=== PATIENT | male | born 1955 | race Caucasian/White ===

== ENCOUNTER 2018-08-27 22:03 | Emergency (ER) | payer OTHER ==
[2018-08-27 22:25] VITALS: RESP 18
--- NOTE | 2018-08-27 22:35 | ED PDOC ---
Arrival/HPI - General Chief Complaint: Syncope Time Seen by Provider: 08/27/18 22:05 Historian: Patient, Family - History of Present Illness Narrative History of Present Illness (Text): 08/27/18 22:32 63 year old male with pmhx of hypothyroidism and hypertension presents to the ED s/p witnessed syncopal episode at [facility]. Patient states he felt weak and diaphoretic before the syncopal episode, otherwise denies any other associated symptoms before the episode. Patient reports he only had one meal today and reports he experienced a syncopal episode in the past due to not eating enough. Patient denies any fever, chills, chest pain, shortness of breath, nausea, vomiting, diarrhea, urinary symptoms, back pain, neck pain, headache, dizziness, or any other complaints. Time/Duration: Prior to Arrival Symptom Onset: Sudden Symptom Course: Improving Activities at Onset: Light Context: Other ([facility]) Past Medical History - Provider Review Nursing Documentation Reviewed: Yes - Infectious Disease Hx of Infectious Diseases: None - Cardiac Hx Hypertension: Yes - Endocrine/Metabolic Hx Hypothyroidism: Yes - Psychiatric Hx Substance Use: No - Surgical History Other/Comment: stomach surgery 2012. Pt states "stomach shifted upwards". - Anesthesia Hx Anesthesia: No Family/Social History - Physician Review Nursing Documentation Reviewed: Yes Family/Social History: No Known Family HX Smoking Status: Never Smoked Hx Alcohol Use: No Hx Substance Use: No Allergies/Home Meds Allergies/Adverse Reactions: Allergies No Known Allergies Allergy (Verified 08/27/18 22:22) Home Medications: Home Meds Medication Instructions Recorded Confirmed Levothyroxine [Synthroid] 25 mg PO DAILY 08/27/18 08/27/18 amLODIPine [Norvasc] 10 mg PO DAILY 08/27/18 08/27/18 Review of Systems - Physician Review All systems were reviewed & negative as marked: Yes - Review of Systems Constitutional: absent: Fevers Respiratory: absent: SOB Cardiovascular: Syncope. absent: Chest Pain Gastrointestinal: absent: Diarrhea, Nausea, Vomiting Genitourinary Male: absent: Dysuria, Frequency, Hematuria Musculoskeletal: absent: Back Pain, Neck Pain Neurological: Other (weakness). absent: Headache, Dizziness Endocrine: Diaphoresis Physical Exam - Physical Exam Narrative Physical Exam (Text): Gen: VS reviewed, alert, well developed, well nourished, nontoxic, mild distress. ENT: normal pharynx. Eye: EOMI, PERRL. Neck: no JVD, supple, no adenopathy. CV: regular rate, regular rhythm, no rubs, no murmur, no gallops, S1, S2, pulses equal and strong. Pulm: no distress, clear to auscultation, no wheeze, no rhonchi, breath sounds equal, no rales. Abd: soft, nontender, no guarding, no rebound, no rigidity, normal bowel sounds. Ext: no edema. Skin: good color, no rash, no cyanosis. Psych: responds appropriately to questions, normal affect. Neuro: oriented x 3, CN2-12 intact grossly, motor intact, sensation intact. Vital Signs Reviewed: Yes Vital Signs Temp Pulse Resp BP Pulse Ox 08/27/18 22:25 98.4 F 78 18 123/74 100 Temperature: Afebrile Blood Pressure: Normal Pulse: Regular Respiratory Rate: Normal Finger Stick Blood Glucose: 250 Medical Decision Making ED Course and Treatment: 08/27/18 22:34 Impression: 63 year old male presents s/p syncopal episode. Patient reports feeling weak and diaphoretic before the episode. Plan: -- Labs -- Finger stick -- Chest X-ray -- Reassess and disposition Prior Visits: Notes and results from previous visits were reviewed. Progress Notes: 08/28/18 00:15 patient seen for syncope, no acute symptoms prior to event such as headache, chest pain, abdominal pain or back pain. patient remained stable throughout ED course. patient encouraged to have close follow up with his pcp. patient reports onset of nasal congeston/irritation with sore throat, on inspection of the post pharynx there is no tonsillar swelling, no exudates, no abnormal redness. symptoms consistent with viral uri, supportive care. - Lab Interpretations I have reviewed the lab results: Yes - RAD Interpretation Narrative RAD Interpretations (Text): 08/28/18 00:05 cxr my read: no focal infiltrate, no ptx, no wide mediastinum Continuous [employer] Supervisor: ED Physician - EKG Interpretation EKG Interpretation (Text): 08/27/18 22:55 2220: nsr at 73 bpm, nml qrs, nml axis, no acute sttw abn Interpreted by ED Physician: Yes - Scribe Statement The provider has reviewed the documentation as recorded by the Scribe Marcela Schroeder Provider Cameron Attestation: All medical record entries made by the Cameron were at my direction and personally dictated by me. I have reviewed the chart and agree that the record accurately reflects my personal performance of the history, physical exam, medical decision making, and the department course for this patient. I have also personally directed, reviewed, and agree with the discharge instructions and disposition. Disposition/Present on Arrival - Present on Arrival Any Indicators Present on Arrival: No History of DVT/PE: No History of Uncontrolled Diabetes: No Urinary Catheter: No History of Decub. Ulcer: No History Surgical Site Infection Following: None - Disposition Have Diagnosis and Disposition been Completed?: Yes Diagnosis: Syncope, Viral pharyngitis Disposition: HOME/ ROUTINE Disposition Time: 00:17 Patient Plan: Discharge Condition: STABLE Discharge Instructions (ExitCare): Syncope (ED), Viral Pharyngitis, Syncope (Fainting) Additional Instructions: Stay well hydrated (water). Return for any new or worsening symptoms. You should discuss with your doctor about referral to a manager steel if this has not been arranged already. NOLBERTO GIL, thank you for letting us take care of you today. Your provider was Dr. Mk Curiel and you were treated for SYNCOPE. The emergency medical care you received today was directed at your acute symptoms. If you were prescribed any medication, please fill it and take as directed. It may take several days for your symptoms to resolve. Return to the Emergency Department if your symptoms worsen, do not improve, or if you have any other problems. Please contact your doctor or call one of the physicians/clinics you have been referred to that are listed on the Patient Visit Information form that is included in your discharge packet. Bring any paperwork you were given at discharge with you along with any medications you are taking to your follow up visit. Our treatment cannot replace ongoing medical care by a primary care provider outside of the emergency department. Thank you for allowing the [facility] team to be part of your care today. If you had an X-Ray or CT scan: A Radiologist will review the ED reading if any change in treatment is needed we will contact you. If you had a blood, urine, or wound culture: It will take several days for the results, if any change in treatment is needed we will contact you. If you had an STI test: It will take 48 hours for the results. Please call after 1 week if you have not heard back. Referrals: Judith Gerber, [Primary Care Provider] - Follow up with primary Forms: [employer] [facility] (Vietnamese)
[2018-08-27 23:18] LABS: ALB/GLOB RATIO 1.5 (1.1-1.8); ALBUMIN 4.6 g/dL (3.0-4.8); ALT/SGPT 95 U/L (7-56); AST/SGOT 64 U/L (17-59); BLOOD UREA NITROGEN 18 mg/dL (7-21); CALCIUM 9.4 mg/dL (8.4-10.5); GFR NON-AFRICAN AMERICAN 56
[2018-08-27 23:19] LABS: BASO # 0.03 K/mm3 (0.0-2.0); BASO % 0.3 % (0.0-3.0); EOS # 0.4 (0.0-0.7); EOS % 4.3 % (1.5-5.0); GRAN # 6.24 (1.4-6.5); GRAN % 72.5 % (50.0-68.0); HEMOGLOBIN 13.8 g/dL (14.0-18.0); LYMPH # 1.5 (1.2-3.4); MEAN CELL VOLUME 67.3 fl (80.0-105.0); MEAN CORPUSCULAR HGB CONC 32.7 g/dl (31.0-37.0); MEAN PLATELET VOLUME 9.2 fl (7.0-11.0); MONO # 0.5 (0.1-0.6); MONO % 5.9 % (1.0-6.0); RBC 6.27 10^6/uL (3.5-6.1); RED CELL DISTRIBUTION WIDTH 15.9 % (11.5-14.5); WHITE BLOOD COUNT 8.6 10^3/uL (4.5-11.0)
[2018-08-28 01:26] VITALS: BP 128/80; PULSE 86; TEMP 99; O2SAT 100
--- NOTE | 2018-08-28 09:14 | RAD ---
Date of service: 08/27/2018 HISTORY: syncope COMPARISON: No prior. TECHNIQUE: Chest PA and lateral FINDINGS: LUNGS: No active pulmonary disease. PLEURA: No significant pleural effusion identified. No pneumothorax apparent. CARDIOVASCULAR: No aortic atherosclerotic calcification present. Normal cardiac size. No pulmonary vascular congestion. OSSEOUS STRUCTURES: No significant abnormalities. VISUALIZED UPPER ABDOMEN: Normal. OTHER FINDINGS: None. IMPRESSION: No active disease.
--- NOTE | 2018-08-28 18:52 | CARD ---
APPROVED REPORT Date of service: 08/27/2018 EKG Measurement Heart [id number] <Conclusion> Normal sinus rhythm Normal ECG
== END 2018-08-28 00:45 | disposition home or self-care (01) ==
LOC: ED 22:03 → MERGE 22:03 → ED 08-28 00:45
DX: R55 Syncope and collapse (principal); J02.9 Acute pharyngitis, unspecified; I10 Essential (primary) hypertension